=== PATIENT | female | born 1960 | race Caucasian/White ===

== ENCOUNTER → 2018-02-17 | Outpatient (CLI) | payer OTHER ==
[~2018-02-17] VITALS: Ht 172.7 cm; Wt 86.3 kg
[~2018-02-17] MED LIST: AZOR 5 MG-40 MG1 TAB PO; PEPCID40 MG PO; SINGULAIR 110 MG/TAB PO; ZOLOFT 100MG100 MG PO
[2018-02-17 14:13] VITALS: BP 136/84; PULSE 104
[2018-02-17 14:55] VITALS: BP 122/66; PULSE 84
== END ==
LOC: COL.RAD 13:49
DX: M25.552 Pain in left hip (principal)

== ENCOUNTER → 2018-02-25 | Outpatient (CLI) | payer OTHER | LOC: COL.RAD 09:00 | DX: M16.12 Unilateral primary osteoarthritis, left hip (principal) | CPT/HCPCS: J3301; Q9967 ==